=== PATIENT | male | born 1940 | race African-American/Black ===

== ENCOUNTER 2018-08-14 15:43 | Emergency (ER) | payer MEDICARE ==
[~2018-08-14] VITALS: Ht 182.9 cm; Wt 90.7 kg
[2018-08-14 16:30] LABS: Basophils # (auto) 0 uL; Basophils % (auto) 0.9 % (0.0-2.0); Eosinophils # (auto) 0.1 uL; Eosinophils % (auto) 2.8 % (0.0-7.0); Hematocrit 44.8 % (41.0-53.0); Hemoglobin 14.5 g/dL (13.5-17.5); Lymphocytes # (auto) 1.4 uL; Lymphocytes % (auto) 34.8 % (10.0-50.0); Mean Corpuscular Hemoglobin 28.5 pg (28.0-32.0); Mean Corpuscular Hgb Conc. 32.4 g/dL (32.0-36.0); Mean Corpuscular Volume 87.9 fL (80.0-100.0); Monocytes # (auto) 0.4 uL; Monocytes % (auto) 9.3 % (0.0-12.0); Neutrophils % (auto) 52.2 % (37.0-80.0); Nucleated Red Blood Cells % 0.2 %; Platelet Count (auto) 139 10^3/uL (140-450); Red Cell Distribution Width 14.3 % (11.8-14.3); White Blood Cell 3.9 10^3/uL (4.4-10.8)
[2018-08-14 16:48] LABS: Albumin 3.7 g/dL (3.4-5.0); Calcium 9.4 mg/dL (8.5-10.1); Potassium 3.7 mmol/L (3.5-5.1)
[2018-08-14 16:51] LABS: Bilirubin, Total 0.7 mg/dL (0.2-1.0); Total Protein 7.7 g/dL (6.4-8.2)
[2018-08-14 17:50] VITALS: BP 140/82
== END 2018-08-14 17:57 | disposition home or self-care (01) ==
LOC: ER 15:43
DX: H93.13 Tinnitus, bilateral (principal); I10 Essential (primary) hypertension
CPT/HCPCS: 36415; 70450; 80053; 85025; 93005

== ENCOUNTER 2019-06-11 07:23 | Emergency (ER) | payer OTHER ==
[~2019-06-11] VITALS: Ht 182.9 cm; Wt 90.7 kg
[2019-06-11 07:32] VITALS: BP 139/83
[2019-06-11] MEDS ORDERED: KETOROLAC TROMETH 30 MG/ML 1ML VIAL IM ONE (08:00)
== END 2019-06-11 08:21 | disposition home or self-care (01) ==
LOC: ER 07:23
DX: M25.561 Pain in right knee (principal); I10 Essential (primary) hypertension
CPT/HCPCS: 73562; 96372; 99283; J1885